=== PATIENT | female | born 1960 | race Caucasian/White ===

== ENCOUNTER 2019-02-03 16:53 | Emergency (ER) | payer BC ==
[2019-02-03] MEDS ORDERED: DIPHENHYDRAMINE HCL 50 MG/ML VIAL IV ONE (17:47)
[2019-02-03] MEDS ORDERED: FAMOTIDINE INJ/PF 20 MG/2 ML SDV IV ONE (17:47)
[2019-02-03] MEDS ORDERED: METHYLPREDNISOLONE INJ 125 MG/2 ML SDV IV ONE (17:47)
--- NOTE | 2019-02-03 17:49 | ER Document Report ---
ED Medical Screen (RME) - General Stated Complaint: POSSIBLE ALLERGIC REACTION Time Seen by Provider: 02/03/19 17:47 Mode of Arrival: Ambulatory Information source: Patient Notes: Patient presents with right upper lip swelling and left periorbital swelling. Patient states symptoms started this afternoon and then since her arrival here she developed the periorbital swelling. Patient denies any new foods or medications. I have greeted and performed a rapid initial assessment of this patient. A comprehensive ED assessment and evaluation of the patient, analysis of test results and completion of the medical decision making process will be conducted by additional ED providers. Physical Exam - Vital signs Vitals: Temp Pulse Resp BP Pulse Ox 97.6 F 67 16 158/94 H 100 02/03/19 17:01 02/03/19 17:01 02/03/19 17:01 02/03/19 17:01 02/03/19 17:01 - General General appearance: Alert Notes: Mild left periorbital swelling, mild swelling to right upper lip area, no posterior pharynx edema, no potential airway compromise Course - Vital Signs Vital signs: Temp Pulse Resp BP Pulse Ox 97.6 F 67 16 158/94 H 100 02/03/19 17:01 02/03/19 17:01 02/03/19 17:01 02/03/19 17:01 02/03/19 17:01
--- NOTE | 2019-02-03 21:12 | ER Document Report ---
ED Allergic Reaction - General Chief Complaint: Allergic Reaction Stated Complaint: POSSIBLE ALLERGIC REACTION Time Seen by Provider: 02/03/19 17:47 Primary Care Provider: SARAY MILIAN PA-C [Primary Care Provider] - Follow up as needed Mode of Arrival: Ambulatory Information source: Patient, Relative - daughter Notes: Ms. Lockwood is a 58 yo f w/ PMH hyperlipidemia presenting to the ED for lip swelling and eye swelling. Patient denies any new lotions, products, medications or new food. He does endorse having recently bought a brand-new bed comforter set and did not wash it prior to putting it on her bed last night. This was the first day that she used it. She states that she noted the right upper lip swelling as well as left upper eye lateral swelling around 1:59 PM today while at work. She denies any shortness of breath at any point. No difficulty swallowing, change in voice or phonation. She also noted some tingling to both the eyes as well as lip. Patient was medicated out in triage and states that since waiting to be seen by me, her swelling and tingling has significantly improved. Denies any changes in vision or blurry vision. Patient denies any rash. - Related Data Allergies/Adverse Reactions: shellfish derived Allergy (Verified 02/03/19 19:05) Past Medical History - General Information source: Patient - Social History Smoking Status: Never Smoker Chew tobacco use (# tins/day): No Frequency of alcohol use: Occasional Drug Abuse: None Family History: Reviewed & Not Pertinent Patient has suicidal ideation: No Patient has homicidal ideation: No Past Surgical History: Reports: Hx Oral Surgery, Hx Orthopedic Surgery - lt ankle surgery Review of Systems - Review of Systems Constitutional: See HPI EENT: See HPI Cardiovascular: No symptoms reported Respiratory: See HPI Gastrointestinal: No symptoms reported Genitourinary: No symptoms reported Female Genitourinary: No symptoms reported Musculoskeletal: No symptoms reported Skin: See HPI Hematologic/Lymphatic: No symptoms reported Neurological/Psychological: No symptoms reported Physical Exam - Vital signs Vitals: Temp Pulse Resp BP Pulse Ox 97.6 F 67 16 158/94 H 100 02/03/19 17:01 02/03/19 17:01 02/03/19 17:01 02/03/19 17:01 02/03/19 17:01 Interpretation: Hypertensive - General General appearance: Appears well, Alert - HEENT Head: Normocephalic, Atraumatic Eyes: Normal, Other - No swelling noted to either eye upon my evaluation. However reported that the left lateral upper eye had been swollen. Patient endorses significant improvement since arrival. Pupils: PERRL Mouth/Lips: Other - Swelling to the right upper lip Neck: Other - No stridor - Respiratory Respiratory status: No respiratory distress Chest status: Nontender Breath sounds: Normal Chest palpation: Normal - Cardiovascular Rhythm: Regular Heart sounds: Normal auscultation Murmur: No - Abdominal Inspection: Normal Distension: No distension Bowel sounds: Normal Tenderness: Nontender Organomegaly: No organomegaly - Back Back: Normal, Nontender - Extremities General upper extremity: Normal inspection, Nontender, Normal color, Normal ROM, Normal temperature General lower extremity: Normal inspection, Nontender, Normal color, Normal ROM, Normal temperature, Normal weight bearing. No: Richard's sign - Neurological Neuro grossly intact: Yes Cognition: Normal Orientation: AAOx4 Cher Coma Scale Eye Opening: Spontaneous [place] Coma Scale Verbal: Oriented Cher Coma Scale Motor: Obeys Commands Cher Coma Scale Total: 15 Speech: Normal Motor strength normal: LUE, RUE, LLE, RLE Sensory: Normal - Psychological Associated symptoms: Normal affect, Normal mood - Skin Skin Temperature: Warm - No rash Skin Moisture: Dry Skin Color: Normal Course - Re-evaluation Re-evalutation: Patient is generally well-appearing nontoxic. Initial vitals notable for mildly elevated blood pressure. Swelling noted to the right upper half of the lip. Differential diagnosis includes allergic reaction, angioedema, contact dermatitis. 02/03/19 21:14 Likely mild allergic reaction. Patient received Solu-Medrol, famotidine as well as Benadryl from triage. Upon my evaluation, her symptoms had significantly improved and nearly resolved. The only swelling appreciated is to the lip, none to the eye. Also endorses significant improvement. Plan to discharge with inst ructions to use prednisone for the next 4 days as well as Benadryl as needed for swelling. Patient given return precautions. - Vital Signs Vital signs: Temp Pulse Resp BP Pulse Ox 97.6 F 67 16 158/94 H 100 02/03/19 17:01 02/03/19 17:01 02/03/19 17:01 02/03/19 17:02/03/19 17:01 Discharge - Discharge Clinical Impression: Allergic reaction, Lip swelling Condition: Good Disposition: HOME, SELF-CARE Instructions: Acute Allergic Reaction ([facility]), Contact Dermatitis ([facility]) Additional Instructions: I would recommend you apply ice to the lip to help decrease the swelling. I would also recommend that you use 1-2 Benadryl every 6-8 hours for swelling or tingling. It is important that you use the prednisone for the next 4 days. I would also use [id number] famotidine or the famotidine prescription provided to you for the next week. Follow-up with the primary care doctor. If you notice any worsening in the swelling, difficulty breathing, difficulty s wallowing, or any other concerning symptoms, please return to the ED for further evaluation. Prescriptions: Prednisone [Deltasone 20 mg Tablet] 2 tab PO DAILY 4 Days tablet Famotidine 40 mg PO DAILY #30 tablet Forms: Return to Work Referrals: SARAY MILIAN PA-C [Primary Care Provider] - Follow up as needed
[2019-02-03 21:28] VITALS: BP 157/86
== END 2019-02-03 21:39 | disposition home or self-care (01) ==
LOC: ER 16:53
DX: T78.40XA Allergy, unspecified, initial encounter (principal); R22.0 Localized swelling, mass and lump, head; R20.2 Paresthesia of skin; X58.XXXA Exposure to other specified factors, initial encounter; I10 Essential (primary) hypertension; Z91.013 Allergy to seafood
CPT/HCPCS: J1200; J2930; S0028